=== PATIENT | male | born 1945 | race Caucasian/White ===

== ENCOUNTER → 2024-11-27 | Day surgery (SDC) | payer MEDICARE, OTHER ==
[~2024-11-27] MED LIST: ACETAMINOPHEN 1000 MG/100 ML 100 ML IV ONE; ASPIRIN 325 MG TAB PO SCH; ASPIRIN81 MG PO; AVODART0.5 MG PO; BUPIVACAINE 0.5%/EPI 30 ML SDV INJ ONE; CELEBREX200 MG PO; CELECOXIB 100 MG CAP PO SCH; DEXAMETHASONE SOD PHOS INJ 4 MG/ML SDV ONE; DIPHENHYDRAMINE HCL INJ 50 MG/ML VIAL IV PRN; DOCUSATE SODIUM 100 MG CAP PO PRN; EYE LUBRICANT OPTH OINT 3.5GM TUBE OP ONE; FENTANYL CITRATE/PF 100MCG/2 ML INJ ONE; FISH OIL 1,0001 EAC7 PO; FLOMAX0.4 MG PO; GLYCOPYRROLATE INJ 0.2 MG/ML VIAL ONE; HYDROCODONE/APAP 5MG-325MG TAB PO PRN; HYDROCODONE/APAP 7.5MG-325MG 1 EA TAB ONE; HYDROCODONE/APAP 7.5MG-325MG 1 EA TAB PO PRN; LEXAPRO5 MG PO; LIDOCAINE HCL 2% LOCAL INJ 5 ML SDV VIAL INJ ONE; LYSINE1000 MG PO; MAGNESIUM PO; METOCLOPRAMIDE HCL 10 MG/2ML VIAL ONE; METOPROLOL TART25 MG PO; MICARDIS80 MG PO; NEOSTIGMINE 1 MG/ML 10ML VIAL ONE; NEXIUM20 MG PO; ONDANSETRON HCL INJ 2MG/ML 2ML 2 MG/ML VIAL IV PRN; ONDANSETRON HCL INJ 2MG/ML 2ML 2 MG/ML VIAL ONE; PHENYLEPHRINE HCL 1% 10 MG/ML VIAL ONE; PROPOFOL IV EMULSION 10 MG/ML 20 ML VIAL ONE; ROCURONIUM BROMIDE 1 ML IV ONE; ROPIVACAINE 123 MG, EPINEPHRINE HCL 1:1000 1ML 0.25 MG, CLONIDINE HCL 0.04 MG, KETOROLA... INJ ONE; ROPIVACAINE 246.25 MG, EPINEPHRINE HCL 1:1000 1ML 0.5 MG, CLONIDINE HCL 0.08 MG, KETORO... INJ ONE; SEVOFLURANE INHAL SOLN 250 ML PEN BTL ONE; SODIUM CHLORIDE 0.9% 1000ML 1,000 ML IV SCH; TYLENOL ARTHRITIS PO; VITAMIN C1000 MG PO; ZINC30 M1 PO
[2024-11-27] MEDS: CEFAZOLIN SODIUM 2 GM ONE (07:35)
[2024-11-27] MEDS: LACTATED RINGER'S 1,000 ML ONE (07:35)
[2024-11-27] MEDS: DEXAMETHASONE SOD PHOS 10 MG/1 ML VIAL ONE (07:36)
[2024-11-27] MEDS: GABAPENTIN 300 MG CAP ONE (07:36)
[2024-11-27] MEDS: CELECOXIB 200 MG CAP ONE (07:36)
[2024-11-27 11:43] VITALS: TEMP 97.3
[2024-11-27] MEDS: HYDROMORPHONE 1MG/1ML INJ ONE (11:54)
[2024-11-27] MEDS: KETOROLAC TROMETHAMINE 30 MG/ML VIAL ONE (12:21)
[2024-11-27] MEDS: FENTANYL CITRATE/PF 100MCG/2 ML INJ ONE (12:35)
[2024-11-27 14:30] VITALS: BP 159/88; PULSE 74; RESP 15; O2SAT 97
== END | disposition home health service (06) ==
LOC: OR 06:16
PROVIDERS: ATTEND Specialist
DX: M16.11 Unilateral primary osteoarthritis, right hip (principal); I10 Essential (primary) hypertension; I42.9 Cardiomyopathy, unspecified; I34.0 Nonrheumatic mitral (valve) insufficiency; E78.5 Hyperlipidemia, unspecified; K21.9 Gastro-esophageal reflux disease without esophagitis; Z01.818 Encounter for other preprocedural examination; Z85.038 Personal history of other malignant neoplasm of large intestine; Z79.899 Other long term (current) drug therapy
CPT/HCPCS: 27130; 71046; 72170; 86850; 86900; 93005; 97116; 97161; 97530; C1713 ×3; J0131; J0171; J1100 ×2; J1171; J1885; J2003; J2371; J2405; J2704; J2710; J2765; J2795; J3010; J7121